=== PATIENT | female | born 1965 | race Caucasian/White ===

== ENCOUNTER → 2021-12-17 | Outpatient (CLI) | payer OTHER ==
--- NOTE | 2021-12-17 16:11 | CARD ---
MR#: [id number] Date of Study: 12/17/2021 Ordering Physician: HEBERT AVENDANO, Referring Physician: HEBERT AVENDANO, Tech: Herve Mcgill [facility] APPROVED REPORT EXAM: Two-dimensional and M-mode echocardiogram with Doppler and color Doppler. Other Information Quality : AverageHR: 71bpm Rhythm : NSR INDICATION Abnormal EKG RISK FACTORS Hypertension Obesity 2D DIMENSIONS Left Atrium(2D)5.7 (1.6-4.0cm)IVSd1.1 (0.7-1.1cm) Aortic Root(2D)4.1 (2.0-3.7cm)LVDd4.5 (3.9-5.9cm) LVOT Diameter2.4 (1.8-2.4cm)PWd1.1 (0.7-1.1cm) LA Sqrngt875 (18-58mL)LVDs2.6 (2.5-4.0cm) FS (%) 43.5 %SV69.9 ml Aortic Valve AoV Peak Paulino.112.4cm/sAoV VTI20.4cm AO Peak GR.5.1mmHgLVOT Peak Paulino.78.2cm/s LVOT VTI 15.26cmAO Mean GR.3mmHg MINGO (VMAX)2.93wg8CNK (VTI)3.51cm2 Mitral Valve MV E Spzhepoy73.9cm/sMV DECEL [id number] MV A Btyrpnbv14.3cm/sMV E Mean Gr.1mmHg MV EYO274orR/A Ratio0.7 MVA (PHT)1.77cm2 TDI E/Lateral E'9.3E/Medial E'7.1 Pulmonary Valve PV Peak Ulbpycom553.6cm/sPV Peak Grad.7mmHg Tricuspid Valve TR P. Bkktccam102bi/sTR Peak Gr.22mmHg Pulmonary Vein S1 Dhugszrw91.2cm/sD2 Ofydxvnk86.9cm/s LEFT VENTRICLE The left ventricle is normal size. There is borderline concentric left ventricular hypertrophy. The l eft ventricular systolic function is normal and the ejection fraction is within normal range. Left ve ntricular ejection fraction is 55 to 60%. There is normal LV segmental wall motion. Transmitral Doppl er flow pattern is Grade I-abnormal relaxation pattern. No left ventricle thrombus noted on this stud y. There is no ventricular septal defect visualized. There is no left ventricular aneurysm. There is no mass noted in the left ventricle. RIGHT VENTRICLE The right ventricle is normal size. There is normal right ventricular wall thickness. The right ventr icular systolic function is normal. ATRIA The left atrium is mildly dilated. The right atrium size is normal. The interatrial septum is intact with no evidence for an atrial septal defect or patent foramen ovale as noted on 2-D or Doppler imagi ng. AORTIC VALVE The aortic valve is mildly sclerotic. Doppler and Color Flow revealed no significant aortic regurgita tion. There is no significant aortic valvular stenosis. There is no aortic valvular vegetation. MITRAL VALVE The mitral valve is normal in structure and function. There is no evidence of mitral valve prolapse. There is no mitral valve stenosis. Doppler and Color-flow revealed trace mitral regurgitation. TRICUSPID VALVE The tricuspid valve is normal in structure and function. Doppler and Color Flow revealed no tricuspid valve regurgitation noted. There is no tricuspid valve prolapse or vegetation. There is no tricuspid valve stenosis. PULMONIC VALVE The pulmonary valve is normal in structure and function. Doppler and Color Flow revealed no pulmonic valvular regurgitation. There is no pulmonic valvular stenosis. GREAT VESSELS The aortic root is mildly dilated at (4.1)cm The ascending aorta is dilated at 4.0cm. The pulmonary a rtery is normal. The IVC is normal in size and collapses >50% with inspiration. PERICARDIAL EFFUSION There is no pleural effusion. There is no evidence of significant pericardial effusion. Critical Notification Critical Value: No <Conclusion> The left ventricle is normal size. The left ventricular systolic function is normal and the ejection fraction is within normal range. Left ventricular ejection fraction is 55 to 60%. There is borderline concentric left ventricular hypertrophy. Doppler and Color Flow revealed no significant aortic regurgitation. There is no significant aortic valvular stenosis. Doppler and Color-flow revealed trace mitral regurgitation. Doppler and Color Flow revealed no tricuspid valve regurgitation noted. The aortic root is mildly dilated at 4.1 cm. The ascending aorta is mildly dilated at 4.0 cm. Signed by : Ramin Matthews MD Electronically Approved : 12/17/2021 16:11:10
== END ==
LOC: ECHO 07:59
PROVIDERS: ATTEND Family Medicine
DX: I35.1 Nonrheumatic aortic (valve) insufficiency (principal); I51.7 Cardiomegaly; R94.31 Abnormal electrocardiogram [ECG] [EKG]
CPT/HCPCS: 93306; C8929